=== PATIENT | male | born 1950 | race Hispanic/Latino ===

== ENCOUNTER 2020-01-26 14:20 | Emergency (ER) | payer MEDICARE ==
[~2020-01-26] VITALS: Ht 180.3 cm; Wt 102.1 kg
--- NOTE | 2020-01-26 14:52 | Emergency Department Note ---
History of Present Illnes History of Present Illness Chief Complaint: General Medicine Complaints History of Present Illness This is a 69 year old male . Historian: Patient Arrival Mode: Car Mirror Silverer Required: No Onset (how long ago): week(s) (2) Location: LEFT CALF Quality: PAIN AND ACHING Radiation: extremity (UP LEFT LEG) Severity: severe (8) Onset quality: gradual Duration (how long): week(s) (2) Timing of current episode: constant Progression: worsening Chronicity: new Relieving factors: none Exacerbating factors: movement Treatments prior to arrival: none, other (WENT TO PCP AND DX WITH MCL OR LCL STRAIN, XRAYS ONLY DONE) Past Medical/Family History Physician Review I have reviewed the patient's past medical and family history. Any updates have been documented here. Past Medical History Recent Fever: No Clinical Suspicion of Infectio: No New/Unexplained Change in Ment: No Past Medical History: Hypertension, Diabetes, Hyperlipedemia Past Surgical History: None Social History Smoking Cessation: Never Smoker Counseling Performed: No Alcohol Use: Occasional Any Illegal Drug Use: No TB Exposure/Symptoms: No Physically hurt or threatened: No Family History Family history of heart diseas: No Other Last Tetanus: UNKNOWN Any Pre-Existing Lines (PICC,: No Is patient up to date on immun: No Review of Systems ROS Narrative PATIENT IS A 69 YEAR OLD MALE THAT PRESENTS WITH LEFT CALF PAIN X 2 WEEKS. PATIENT STATES THE PAIN IS WORSE AND R/T LEFT MID THIGH. PATIENT STATES HE WENT TO HIS PCP LAST WEEK AND HAD XRAYS COMPLETED THAT WERE NEGATIVE. TODAY PATIENT PRESENTS WITH WORSENING PAIN. Review of Systems Constitutional: no symptoms EENTM: no symptoms Cardiovascular: no symptoms Respiratory: no symptoms Gastrointestinal: no symptoms Genitourinary: no symptoms Musculoskeletal: other (LEFT LOWER LEG PAIN) Neurological: no symptoms Psychological: no symptoms Endocrine: no symptoms Hematological/Lymphatic: no symptoms Review of other systems All other systems reviewed and negative. Physical Exam Related Data Allergies: Coded Allergies: No Known Allergies (Unverified , 01/26/20) Triage Vital Signs Vital Signs Date Time Temp Pulse Resp B/P (MAP) Pulse Ox O2 Delivery O2 Flow Rate FiO2 01/26/20 14:24 98.6 64 18 226/97 97 Vital signs reviewed: Yes Physical Exam CONSTITUTIONAL Constitutional: well-developed, well-nourished HENT HENT: normocephalic, atraumatic, oropharynx clear/moist, nose normal HENT L/R: left ext ear normal, right ext ear normal EYES Eyes: PERRL, conjunctivae normal NECK Neck: ROM normal PULMONARY Pulmonary: effort normal, breath sounds normal CARDIOVASCULAR Cardiovascular: regular rhythm, heart sounds normal, capillary refill normal, normal rate GASTROINTESTINAL Abdominal: soft, nontender, bowel sounds normal GENITOURINARY Genitourinary: exam deferred SKIN Skin: warm, dry MUSCULOSKELETAL Musculoskeletal: tenderness, other (POSITIVE HOMMANS SIGN LEFT LEG. ) NEUROLOGICAL Neurological: alert, oriented x 3, no gross motor or sensory deficits PSYCHOLOGICAL Psychological: mood/affect normal, judgement normal Procedures 12 Lead ECG Interpretation Mirror Silverer: Interpreted by ED physician (SUZY) Date: January 26, 2020 Time: 14:51 Prior MUSEUM GUIDE tracings: reviewed Rhythm: sinus bradycardia Rate: bradycardia BPM: 59 Critical Care Time Subsequent provider I assumed direction of critical care for this patient from another provider of my specialty. Assessment & Plan Reassessment Reassessment time: 16:00 Reassessment PATIENT STATES HIS PAIN IS ONLY SLIGHTLY BETTER, AWAITING US RESULTS 1700- US NEGATIVE, REQUESTING ADDITIONAL PAIN MEDS, TORADOL ORDERED- WILL DC HOME Assessment & Plan Final Impression: (1) Leg cramps Assessment & Plan CONCERNED WITH DVT, BLOOD WORK, EKG, CXR AND US ORDERED IVF AND PAIN MEDICATION Depart Disposition: HOME, SELF-CARE Last Vital Signs Date Time Temp Pulse Resp B/P (MAP) Pulse Ox O2 Delivery O2 Flow Rate FiO2 01/26/20 14:24 98.6 64 18 226/97 97 Medications in the ED IVF MSO4 ZOFRAN TORADOL TRAVIS JONES NP January 26, 2020 14:39
[2020-01-26] MEDS ORDERED: ONDANSETRON HCL INJ 2MG/ML 2ML 2 MG/ML VIAL IV STA (14:56)
[2020-01-26] MEDS ORDERED: HYDRALAZINE HCL 20 MG/ML VIAL IV STA (14:56)
[2020-01-26] MEDS ORDERED: MORPHINE SULFATE INJ 4 MG/ML INJ 1ML IV STA (14:56)
[2020-01-26 14:58] LABS: BASOPHILS # (AUTO) 0.1 (0.0-0.1); BASOPHILS % 0.7 % (0.0-1.0); EOSINOPHILS # (AUTO) 0.3 (0.0-0.4); EOSINOPHILS % 2.8 % (0.0-6.0); HEMATOCRIT 42.7 % (38.2-49.6); HEMOGLOBIN 14.6 g/dL (14.0-18.0); LYMPHOCYTES # (AUTO) 2.6 (1.0-3.2); LYMPHOCYTES % 27.5 % (18.0-39.1); MEAN CORPUSCULAR HEMOGLOBIN 29.3 pg (28-32); MEAN CORPUSCULAR HGB CONC 34.2 g/dL (31-35); MEAN CORPUSCULAR VOLUME 85.7 fL (81-99); MONOCYTES % 10.5 % (4.4-11.3); NEUTROPHILS # (AUTO) 5.5 (2.1-6.9); NEUTROPHILS % 58.1 % (38.7-80.0); PLATELET COUNT 200 x10e3/uL (140-360); RED BLOOD COUNT 4.98 x10e6/uL (4.3-5.7); RED CELL DISTRIBUTION WIDTH 12.5 % (11.7-14.4)
[2020-01-26] MEDS ORDERED: SODIUM CHLORIDE 0.9% 500ML 500 ML IV ONE (15:00)
[2020-01-26 15:03] LABS: INR 0.91; PROTHROMBIN TIME 12.8 seconds (11.9-14.5)
[2020-01-26 15:04] LABS: PARTIAL THROMBOPLASTIN TIME 29.9 seconds (23.8-35.5)
[2020-01-26] MEDS ORDERED: SODIUM CHLORIDE 0.9% 500ML 500 ML ONE (15:05)
[2020-01-26 15:11] LABS: ALANINE AMINOTRANSFERASE 34 IU/L (0-55); ALBUMIN 4.1 g/dL (3.5-5.0); ALBUMIN/GLOBULIN RATIO 1.1 (0.8-2.0); ALKALINE PHOSPHATASE 73 IU/L (40-150); CALCIUM 9.3 mg/dL (8.4-10.2); CARBON DIOXIDE 27 mmol/L (22-29); CHLORIDE 103 mmol/L (98-107); CREATINE KINASE 256 IU/L (30-200); CREATININE, SERUM 1.16 mg/dL (0.72-1.25); EST GLOMERULAR FILTRATION RATE > 60 ML/MIN (60-); GLUCOSE 128 mg/dL (74-118); SODIUM 140 mmol/L (136-145)
[2020-01-26 15:35] LABS: BLOOD UREA NITROGEN 22 mg/dL (7-26); BUN/CREATININE RATIO 18 (6-25)
--- NOTE | 2020-01-26 16:07 | Diagnostic Imaging Report ---
Examination: Single AP view of the chest. COMPARISON: None. INDICATION: Leg pain IMPRESSION: 1. Lines and Tubes: None 2. Lungs are grossly clear. No consolidation or effusion. 3. Cardiomediastinal silhouette is normal. Pulmonary vasculature is normal. 4. No acute bony abnormalities. Signed by: Dr. Georgi Mcpherson M.D. on 01/26/2020 4:04 PM
[2020-01-26 16:37] VITALS: BP 191/68
[2020-01-26] MEDS ORDERED: KETOROLAC TROMETHAMINE 30 MG/ML VIAL IV STA (16:41)
== END 2020-01-26 17:25 | disposition home or self-care (01) ==
LOC: ER 14:20
DX: M79.662 Pain in left lower leg (principal); R25.2 Cramp and spasm; I10 Essential (primary) hypertension; E11.9 Type 2 diabetes mellitus without complications; E78.5 Hyperlipidemia, unspecified
CPT/HCPCS: 36415; 71045; 80053; 82550; 82553; 84484; 85025; 85610; 85730; 93005; 93971; 99284; J0360; J1885; J2270; J2405; J7040

== ENCOUNTER 2020-02-25 22:40 | Emergency (ER) | payer MEDICARE ==
[~2020-02-25] VITALS: Ht 180.3 cm; Wt 102.1 kg
[2020-02-25] MEDS ORDERED: HYDRALAZINE HCL 25 MG TAB ONE (23:55)
--- NOTE | 2020-02-25 23:57 | Emergency Department Note ---
History of Present Illnes History of Present Illness Chief Complaint: Hypertension History of Present Illness This is a 69 year old male PRESENTS TO ED WITH REPORT OF HTN, PT DE NIES ANY CHEST PAIN OR PRESSURE; DENIES HEADACHE; ELEVATED BP NOTED;. Historian: Patient Arrival Mode: Car Onset (how long ago): hour(s) (6) Location: NONE Quality: ELEVATED BLOOD PRESSURE Radiation: Reports non-radiation Severity: mild Onset quality: gradual Duration (how long): hour(s) (4) Progression: unchanged Chronicity: chronic Context: Denies recent illness, Denies recent surgery Relieving factors: none Exacerbating factors: none Associated symptoms: Reports denies other symptoms Treatments prior to arrival: other (STATES TOOK ALL HIS BP MEDICATIONS TODAY) Past Medical/Family History Physician Review I have reviewed the patient's past medical and family history. Any updates have been documented here. Past Medical History Recent Fever: No Clinical Suspicion of Infectio: No New/Unexplained Change in Ment: No Past Medical History: Hypertension, Diabetes, Hyperlipedemia Past Surgical History: None Social History Smoking Cessation: Never Smoker Alcohol Use: None Any Illegal Drug Use: No Family History Family history of heart diseas: No Other family history HTN,DM Other Last Tetanus: UNKNOWN Review of Systems Review of Systems Constitutional: Reports no symptoms EENTM: Reports no symptoms Cardiovascular: Reports no symptoms Respiratory: Reports no symptoms Gastrointestinal: Reports no symptoms Genitourinary: Reports no symptoms Musculoskeletal: Reports no symptoms Integumentary: Reports no symptoms Neurological: Reports no symptoms Psychological: Reports no symptoms Endocrine: Reports no symptoms Hematological/Lymphatic: Reports no symptoms Physical Exam Related Data Allergies: Coded Allergies: No Known Allergies (Unverified , 01/26/20) Triage Vital Signs Vital Signs Date Time Temp Pulse Resp B/P (MAP) Pulse Ox O2 Delivery O2 Flow Rate FiO2 02/25/20 23:40 98.7 58 17 226/94 99 Vital signs reviewed: Yes Physical Exam CONSTITUTIONAL Constitutional: Present well-developed, Present well-nourished HENT HENT: Present normocephalic, Present atraumatic, Present oropharynx clear/m oist, Present nose normal HENT L/R: Present left ext ear normal, Present right ext ear normal EYES Eyes: Reports PERRL, Reports conjunctivae normal NECK Neck: Present ROM normal PULMONARY Pulmonary: Present effort normal, Present breath sounds normal CARDIOVASCULAR Cardiovascular: Present regular rhythm, Present heart sounds normal, Present capillary refill normal, Present normal rate GASTROINTESTINAL Abdominal: Present soft, Present nontender, Present bowel sounds normal GENITOURINARY Genitourinary: Present exam deferred SKIN Skin: Present warm, Present dry MUSCULOSKELETAL Musculoskeletal: Present ROM normal NEUROLOGICAL Neurological: Present alert, Present oriented x 3, Present no gross motor or sensory deficits PSYCHOLOGICAL Psychological: Present mood/affect normal, Present judgement normal Results Laboratory Laboratory Laboratory Tests Test 02/26/20 02:10 White Blood Count 9.49 x10e3/uL (4.8-10.8) Red Blood Count 4.44 x10e6/uL (4.3-5.7) Hemoglobin 12.8 g/dL (14.0-18.0) Hematocrit 37.9 % (38.2-49.6) Mean Corpuscular Volume 85.4 fL (81-99) Mean Corpuscular Hemoglobin 28.8 pg (28-32) Mean Corpuscular Hemoglobin Concent 33.8 g/dL (31-35) Red Cell Distribution Width 12.3 % (11.7-14.4) Platelet Count 204 x10e3/uL (140-360) Neutrophils (%) (Auto) 64.2 % (38.7-80.0) Lymphocytes (%) (Auto) 21.0 % (18.0-39.1) Monocytes (%) (Auto) 8.9 % (4.4-11.3) Eosinophils (%) (Auto) 4.5 % (0.0-6.0) Basophils (%) (Auto) 0.8 % (0.0-1.0) Neutrophils # (Auto) 6.1 (2.1-6.9) Lymphocytes # (Auto) 2.0 (1.0-3.2) Monocytes # (Auto) 0.8 (0.2-0.8) Eosinophils # (Auto) 0.4 (0.0-0.4) Basophils # (Auto) 0.1 (0.0-0.1) Absolute Immature Granulocyte (auto 0.06 x10e3/uL (0-0.1) Sodium Level 141 mmol/L (136-145) Potassium Level 3.6 mmol/L (3.5-5.1) Chloride Level 103 mmol/L (98-107) Carbon Dioxide Level 27 mmol/L (22-29) Anion Gap 14.6 mmol/L (8-16) Blood Urea Nitrogen 11 mg/dL (7-26) Creatinine 0.85 mg/dL (0.72-1.25) Estimat Glomerular Filtration Rate > 60 ML/MIN (60-) BUN/Creatinine Ratio 13 (6-25) Glucose Level 156 mg/dL (74-118) Calcium Level 9.2 mg/dL (8.4-10.2) Total Bilirubin 1.3 mg/dL (0.2-1.2) Aspartate Amino Transf (AST/SGOT) 22 IU/L (5-34) Alanine Aminotransferase (ALT/SGPT) 28 IU/L (0-55) Alkaline Phosphatase 69 IU/L (40-150) Creatine Kinase 208 IU/L (30-200) Creatine Kinase MB 4.00 ng/mL (0-5.0) Troponin I 0.011 ng/mL (0-0.300) Total Protein 6.8 g/dL (6.5-8.1) Albumin 3.9 g/dL (3.5-5.0) Globulin 2.9 g/dL (2.3-3.5) Albumin/Globulin Ratio 1.3 (0.8-2.0) Lab results reviewed: Yes Procedures 12 Lead ECG Interpretation ECG Interpretation : ECG: ECG 1 Substation Operator: Interpreted by ED physician Date: Feb 26, 2020 Time: 02:15 Rhythm: sinus rhythm Rate: normal BPM: 61 Conduction: incomplete RBBB ST segments normal: Yes T waves normal: Yes T waves flattening: V5, V6 Other findings: LVH Clinical Impression: abnormal ECG Assessment & Plan Medical Decision Making MDM PT WITH ELEVATED BP WITHOUT ANY OTHER SYMPTOMS HYDRALAZIN 25 MG PO ORDERED Reassessment Reassessment time: 03:49 Reassessment BP 173/72, PT STILL WITHOUT ANY SYMPTOMS Assessment & Plan Final Impression: (1) Hypertensive urgency Depart Disposition: HOME, SELF-CARE Last Vital Signs Date Time Temp Pulse Resp B/P (MAP) Pulse Ox O2 Delivery O2 Flow Rate FiO2 02/25/20 23:49 226/94 02/25/20 23:40 98.7 58 17 99 Medications in the ED Hydralazine HCl 25 mg ONCE ONCE PO Last administered on 02/25/20at 23:49; Admin Dose 25 MG; Start 02/26/20 at 00:00; Stop 02/26/20 at 00:01 Hydralazine HCl 25 mg STK-MED ONCE .ROUTE ; Start 02/25/20 at 23:55; Stop 02/25/20 at 23:49; Status DC JN MISTRY MD Feb 25, 2020 23:57
[2020-02-26] MEDS ORDERED: HYDRALAZINE HCL 25 MG TAB PO ONE ×2 (01:00)
[2020-02-26] MEDS ORDERED: HYDRALAZINE HCL 20 MG/ML VIAL IV STA (02:13)
[2020-02-26] MEDS ORDERED: HYDRALAZINE HCL 20 MG/ML VIAL ONE (02:20)
[2020-02-26 02:37] LABS: BASOPHILS # (AUTO) 0.1 (0.0-0.1); BASOPHILS % 0.8 % (0.0-1.0); EOSINOPHILS # (AUTO) 0.4 (0.0-0.4); EOSINOPHILS % 4.5 % (0.0-6.0); HEMATOCRIT 37.9 % (38.2-49.6); HEMOGLOBIN 12.8 g/dL (14.0-18.0); MEAN CORPUSCULAR HEMOGLOBIN 28.8 pg (28-32); MEAN CORPUSCULAR HGB CONC 33.8 g/dL (31-35); MEAN CORPUSCULAR VOLUME 85.4 fL (81-99); MONOCYTES # (AUTO) 0.8 (0.2-0.8); MONOCYTES % 8.9 % (4.4-11.3); NEUTROPHILS # (AUTO) 6.1 (2.1-6.9); NEUTROPHILS % 64.2 % (38.7-80.0); PLATELET COUNT 204 x10e3/uL (140-360); RED BLOOD COUNT 4.44 x10e6/uL (4.3-5.7); RED CELL DISTRIBUTION WIDTH 12.3 % (11.7-14.4)
[2020-02-26 03:13] LABS: ALANINE AMINOTRANSFERASE 28 IU/L (0-55); ALBUMIN 3.9 g/dL (3.5-5.0); ALBUMIN/GLOBULIN RATIO 1.3 (0.8-2.0); ALKALINE PHOSPHATASE 69 IU/L (40-150); ANION GAP 14.6 mmol/L (8-16); BLOOD UREA NITROGEN 11 mg/dL (7-26); BUN/CREATININE RATIO 13 (6-25); CALCIUM 9.2 mg/dL (8.4-10.2); CARBON DIOXIDE 27 mmol/L (22-29); CHLORIDE 103 mmol/L (98-107); CREATINE KINASE 208 IU/L (30-200); CREATININE, SERUM 0.85 mg/dL (0.72-1.25); EST GLOMERULAR FILTRATION RATE > 60 ML/MIN (60-); GLUCOSE 156 mg/dL (74-118); POTASSIUM 3.6 mmol/L (3.5-5.1); SODIUM 141 mmol/L (136-145)
[2020-02-26 04:06] VITALS: BP 173/72
== END 2020-02-26 04:24 | disposition home or self-care (01) ==
LOC: ER 22:40
DX: I16.0 Hypertensive urgency (principal); E11.9 Type 2 diabetes mellitus without complications; E78.5 Hyperlipidemia, unspecified
CPT/HCPCS: 36415; 80053; 82550; 82553; 84484; 85025; 93005; 99284